=== PATIENT | female | born 1945 | race Caucasian/White ===

== ENCOUNTER 2022-07-05 07:57 | Day surgery (SDC) | payer MEDICARE, BC ==
[~2022-07-05] VITALS: Ht 157.5 cm; Wt 59.0 kg
[2022-07-05] VITALS (17 sets, daily range): BP systolic 140–206; BP diastolic 43–79
[~2022-07-05 07:57] MED LIST: ALPR0.252; AMIO200T61 PO; AMLO5TAB PO; ATOR20TA66 PO; CLON0.1T2 PO; ESOM40CA54 PO; FENO145T25 PO; HYDR12.55 PO; LOSA50TA64 PO; METF-438 PO; SPIR25TA5 PO
[2022-07-05] MEDS ORDERED: diphenhydrAMINE 25mg capsule PO PRN (08:30)
[2022-07-05] MEDS ORDERED: normal saline 1,000 ML IV SCH (08:31)
[2022-07-05] MEDS ORDERED: LOPE2CAP PO (08:38)
[2022-07-05 09:28] LABS: BASOPHILS % (AUTO) 0.6 % (0-1); EOSINOPHILS # (AUTO) 0.1 X10'3 (0-0.9); HEMATOCRIT 31.2 % (35.0-45.0); HEMOGLOBIN 10.5 g/dl (12.0-16.0); LYMPHOCYTES # (AUTO) 0.8 X10'3 (1.1-4.8); MEAN CORPUSCULAR HEMOGLOBIN 30.4 PG (27.0-31.0); MEAN CORPUSCULAR HGB CONC 33.5 g/dL (33.0-36.5); MEAN CORPUSCULAR VOLUME 90.7 FL (78-98); MEAN PLATELET VOLUME 9.8 FL (7.4-10.4); MONOCYTES # (AUTO) 0.4 X10'3 (0-0.9); MONOCYTES % (AUTO) 9.8 % (2-12); NEUTROPHILS # (AUTO) 2.6 X10'3 (1.8-7.7); NEUTROPHILS % (AUTO) 66.6 % (42-75); PLATELET COUNT 287 X10'3 (140-440); RED BLOOD COUNT 3.44 X10'6 (4.20-5.60); RED CELL DISTRIBUTION WIDTH 15.7 % (11.5-14.5); WHITE BLOOD COUNT 3.9 X10'3 (4.5-11.0)
[2022-07-05 09:47] LABS: ALBUMIN 4.3 G/DL (3.4-5.0); ANION GAP 13 (8-16); BLOOD UREA NITROGEN 23 MG/DL (7-18); BUN/CREATININE RATIO 16.7 (6.6-38.0); CALCIUM 9.4 MG/DL (8.5-10.1); CHLORIDE 102 MMOL/L (99-107); CREATININE 1.38 MG/DL (0.40-0.90); GLUCOSE 103 MG/DL (70-104); MAGNESIUM 1.7 MG/DL (1.5-2.4); POTASSIUM 4.7 MMOL/L (3.5-5.1); SODIUM 140 MMOL/L (135-145); TOTAL CARBON DIOXIDE 25.1 MMOL/L (24-32); eGFR 37 ML/MIN
[2022-07-05] MEDS ORDERED: normal saline 1000ml 1,000 ML IV SCH ×2 (10:00→12:30)
[2022-07-05] MEDS ORDERED: heparin 1,000unit/ml 10ml vial 10 ML ONE (10:36)
[2022-07-05] MEDS ORDERED: midazolam 1 mg/ML 2ml injection ONE ×2 (10:36→11:29)
[2022-07-05] MEDS ORDERED: LIDOcaine 1% 30ml preserv. free vial ONE (10:36)
[2022-07-05] MEDS ORDERED: iohexol 350MG/ML 100ml bottle IV ONE (10:36)
[2022-07-05] MEDS ORDERED: fentaNYL/PF 50MCG/1 ML 2ML syringe ONE (10:36)
[2022-07-05] MEDS ORDERED: ondansetron/PF 4mg/2ml inj ONE (11:05)
[2022-07-05] MEDS ORDERED: ondansetron/PF 4mg/2ml inj IV PRN (12:30)
[2022-07-05] MEDS ORDERED: HYDROcodone/acetaminophen 10/325mg tab PO PRN (12:35)
[2022-07-05] MEDS ORDERED: HYDROcodone/acetaminophen 5mg/325mg tablet PO PRN (12:35)
[2022-07-05] MEDS ORDERED: proCHLORperazine 10 MG/2 ml inj IV PRN (12:35)
--- NOTE | 2022-07-05 14:30 | NUR ---
Patient's BP slowly trending up. BP 187/69, recheck done and BP 197/69. Switched BP cuff to different arm and BP 206/79. Called Dr. Clark several times on his cell phone with no answer and voicemail wasn't connecting. Called again and was able to connect to voicemail. Left a message for Dr. Clark.
--- NOTE | 2022-07-05 15:10 | NUR ---
Called Dr. Clark's office and got a hold of him. Notified him of patient's BP. Received new order of clonidine 0.2mg PO once now.
--- NOTE | 2022-07-05 15:10 | NUR ---
Went in to give patient clonidine and the BP down to 165/53. Rechecked BP and now 140/43. Holding off on clonidine for now. Patient states her BP goes up and down at home all the time. Addendum: 07/05/22 at 1553 by Tsering Saldivar RN Wrong time
[2022-07-05] MEDS ORDERED: cloNIDine 0.1 mg tablet PO ONE (15:11)
--- NOTE | 2022-07-05 15:20 | NUR ---
Went in to give patient clonidine and the BP down to 165/53. Rechecked BP and now 140/43. Holding off on clonidine for now. Patient states her BP goes up and down at home all the time.
== END 2022-07-05 17:20 | disposition home or self-care (01) ==
LOC: SSTAY O 07:57
PROVIDERS: ATTEND Internal Medicine Cardiovascular Disease
DX: Z03.89 Encounter for observation for other suspected diseases and conditions ruled out (principal); I10 Essential (primary) hypertension; Z95.5 Presence of coronary angioplasty implant and graft; Z79.899 Other long term (current) drug therapy; E11.9 Type 2 diabetes mellitus without complications; E78.5 Hyperlipidemia, unspecified; Z98.890 Other specified postprocedural states; Z90.49 Acquired absence of other specified parts of digestive tract; Z98.49 Cataract extraction status, unspecified eye; Z88.2 Allergy status to sulfonamides; Z88.8 Allergy status to other drugs, medicaments and biological substances
CPT/HCPCS: 36252; 36415; 75625; 75716; 80048; 83735; 85025; 85610; 99152; 99153; C1760; C1887; C1894; J1644; J2250; J2405; J3010; J3490; J7030; Q0163; Q9967; A4620; A6258

== ENCOUNTER 2024-11-26 10:18 | Day surgery (SDC) | payer MEDICARE, BC ==
[~2024-11-26] VITALS: Ht 157.5 cm; Wt 60.7 kg
[2024-11-26] VITALS (8 sets, daily range): BP systolic 174–204; BP diastolic 60–73; PULSE 45–54; RESP 15–20; TEMP 98.2; O2SAT 95–98
[~2024-11-26 10:18] MED LIST changes: +AMI200T PO; -AMIO200T61 PO; -CLON0.1T2 PO; -ESOM40CA54 PO; +ESOM40CA66 PO; +LOPE2CAP PO; +fentaNYL/PF 50MCG/1 ML 2ML syringe ONE; +midazolam 1 mg/ML 2ml injection ONE
[2024-11-26 11:06] LABS: BASOPHILS % (AUTO) 0.5 % (0-1); EOSINOPHILS # (AUTO) 0.1 X10'3 (0-0.9); EOSINOPHILS % (AUTO) 2.4 % (0-6); HEMOGLOBIN 9.3 g/dl (12.0-16.0); LYMPHOCYTES # (AUTO) 1.2 X10'3 (1.1-4.8); LYMPHOCYTES % (AUTO) 20.8 % (21-51); MEAN CORPUSCULAR HEMOGLOBIN 29.9 PG (27.0-31.0); MEAN CORPUSCULAR HGB CONC 33.1 g/dL (33.0-36.5); MEAN CORPUSCULAR VOLUME 90.2 FL (78-98); MEAN PLATELET VOLUME 9.2 FL (7.4-10.4); MONOCYTES # (AUTO) 0.5 X10'3 (0-0.9); MONOCYTES % (AUTO) 9.7 % (2-12); NEUTROPHILS # (AUTO) 3.7 X10'3 (1.8-7.7); NEUTROPHILS % (AUTO) 66.6 % (42-75); PLATELET COUNT 268 X10'3 (140-440); RED BLOOD COUNT 3.11 X10'6 (4.20-5.60); RED CELL DISTRIBUTION WIDTH 15.4 % (11.5-14.5); WHITE BLOOD COUNT 5.5 X10'3 (4.5-11.0)
[2024-11-26 11:18] LABS: APTT 28 SECONDS (22-32); PROTHROMBIN TIME 10.9 SECONDS (9.0-12.0)
[2024-11-26 11:22] LABS: ALBUMIN 3.5 G/DL (3.4-5.0); ANION GAP 10 (8-16); BLOOD UREA NITROGEN 20 MG/DL (7-18); BUN/CREATININE RATIO 14.4 (10.0-20.0); CALCIUM 8.4 MG/DL (8.5-10.1); CHLORIDE 103 MMOL/L (99-107); CREATININE 1.39 MG/DL (0.40-0.90); GLUCOSE 111 MG/DL (70-104); MAGNESIUM 1.1 MG/DL (1.5-2.4); POTASSIUM 4.9 MMOL/L (3.5-5.1); SODIUM 136 MMOL/L (135-145); TOTAL CARBON DIOXIDE 22.7 MMOL/L (24-32); eCRCL 26 ML/MIN; eGFR 36 ML/MIN
[2024-11-26] MEDS ORDERED: CLON0.1T2 PO (11:26)
[2024-11-26] MEDS ORDERED: LOSA1TAB39 PO (11:26)
[2024-11-26] MEDS ORDERED: PROP10TA10 PO (11:26)
[2024-11-26] MEDS: sodium bicarbonate 1meq/ml syr 150 ML in dextrose 5%-water 1,000 ML IV ONE (11:39)
[2024-11-26] MEDS: normal saline 1,000 ML IV SCH (11:39)
[2024-11-26] MEDS: diphenhydrAMINE 25mg capsule PO PRN (11:39)
[2024-11-26 11:41] LABS: % IRON SATURATION 12 % (11-46); FERRITIN 17 NG/ML (8-252); IRON 42 UG/DL (49-151); TOTAL IRON BINDING CAPACITY 345 UG/DL (259-388)
[2024-11-26] MEDS ORDERED: midazolam 1 mg/ML 2ml injection ONE ×2 (12:27→12:52)
[2024-11-26] MEDS ORDERED: iohexol 350 MG/ML 50ML vial IV ONE (12:28)
[2024-11-26] MEDS ORDERED: heparin 1,000unit/ml 10ml vial 10 ML ONE (12:28)
[2024-11-26] MEDS ORDERED: fentaNYL/PF 50MCG/1 ML 2ML syringe ONE (12:28)
[2024-11-26] MEDS ORDERED: iohexol 350MG/ML 100ml bottle IV ONE (12:28)
[2024-11-26] MEDS ORDERED: LIDOcaine 1% 30ml preserv. free vial ONE (12:36)
[2024-11-26] MEDS ORDERED: ondansetron/PF 4mg/2ml inj IV PRN (13:40)
[2024-11-26] MEDS ORDERED: HYDROcodone/acetaminophen 5mg/325mg tablet PO PRN (13:45)
[2024-11-26] MEDS ORDERED: proCHLORperazine 10 MG/2 ml inj IV PRN (13:45)
[2024-11-26] MEDS ORDERED: HYDROcodone/acetaminophen 10/325mg tab PO PRN (13:45)
== END 2024-11-26 15:05 | disposition home or self-care (01) ==
LOC: SSTAY O 10:18
PROVIDERS: ATTEND Internal Medicine Cardiovascular Disease
DX: I15.0 Renovascular hypertension (principal); I10 Essential (primary) hypertension; I44.4 Left anterior fascicular block; Z79.899 Other long term (current) drug therapy; Z98.890 Other specified postprocedural states; Z79.01 Long term (current) use of anticoagulants
CPT/HCPCS: 36252; 36415; 75625; 80048; 82607; 82728; 82746; 83540; 83550; 83735; 85025; 85610; 85730; 93005; A6258; C1751; C1760; C1894; J1644; J2003; J2250; J3010; J3490; J7030; J7070; Q0163; Q9967; Z7610; 99152; 99153